=== PATIENT | female | born 1945 | race Caucasian/White ===

== ENCOUNTER → 2016-05-14 | Outpatient (REF) | payer OTHER | LOC: M SFHCPLAZ 16:59 | PROVIDERS: ATTEND Family Medicine | DX: E11.65 Type 2 diabetes mellitus with hyperglycemia (principal) | CPT/HCPCS: 82043; G0463 ==

== ENCOUNTER → 2016-11-19 | Outpatient (CLI) | payer OTHER | LOC: M WUC 13:33 | PROVIDERS: ATTEND Student in an Organized Health Care Education/Training Program | DX: E11.9 Type 2 diabetes mellitus without complications (principal) ==

== ENCOUNTER → 2017-02-21 | Outpatient (CLI) | payer OTHER | LOC: M WUC 08:24 | PROVIDERS: ATTEND Student in an Organized Health Care Education/Training Program | DX: E11.9 Type 2 diabetes mellitus without complications (principal) ==

== ENCOUNTER → 2017-03-13 | Outpatient (CLI) | payer OTHER | LOC: M WHC 10:14 | DX: Z12.31 Encounter for screening mammogram for malignant neoplasm of breast (principal) | CPT/HCPCS: 77067 ==